=== PATIENT | female | born 1965 | race Caucasian/White ===

== ENCOUNTER 2021-10-11 10:27 | Outpatient (CLI) | payer BC | END 2021-10-11 10:28 | disposition home or self-care (01) | LOC: BICRAD 10:27 | PROVIDERS: ATTEND Family Medicine | DX: M53.3 Sacrococcygeal disorders, not elsewhere classified (principal); S32.2XXA Fracture of coccyx, initial encounter for closed fracture | CPT/HCPCS: 72220 ==

== ENCOUNTER 2024-11-03 14:57 | Emergency (ER) | payer BC ==
[2024-11-03 15:43] LABS: Bacteria/HPF None Seen HPF (None Seen); Bilirubin Negative (Negative); Blood, Urine Negative (Negative); CAUTI Indications for Culture Pelvic or flank pain; Calcium Oxalate Crystals 4+ HPF (None Seen); Clarity Turbid (Clear); Glucose, Urine (Dipstick) Normal (Negative); Ketone, Urine Trace mg/dL (Negative); Leukocyte 25 Leu/uL (Negative); Nitrite Negative (Negative); Protein, Urine (Dipstick) 20 mg/dL (Neg-Trace); RBC/HPF 0-3 HPF (0-3); Specific Gravity, Urine 1.039 (1.002-1.036); Squamous Epithelial 21-50 HPF (0-3); Urobilinogen Normal mg/dL (Less than 2); WBC/HPF 0-3 HPF (0-3); pH, Urine 5.5 (5.0-9.0)
[2024-11-03 15:45] LABS: Pregnancy Test - Urine (BHCG) Negative (Negative); Pregu Control Bar Appear? YES (CONTROL BAR); Specific Gravity 1.039 (1.002-1.036)
[2024-11-03 15:46] LABS: Pregu Control Background? CLEAR/WHITE (CLR/WHITE); Urine Culture Reflex No No
[2024-11-03 15:50] LABS: #Basophils 0.03 10x3/uL (0.0-0.2); %Basophils 0.5 % (0.0-1.0); %Eosinophils 1.5 % (0.0-10.0); %Lymphocytes 31.9 % (21.0-51.0); %Monocytes 7.3 % (0.0-10.0); %Neutrophils 58.6 % (42.0-75.0); Hematocrit 39.6 % (36.0-47.0); Mean Corpuscular HGB CONC 32.8 g/dL (32.0-36.0); Mean Corpuscular Volume 97.5 fL (78.0-98.0); Mean Platelet Volume 9.4 fL (7.4-10.4); Platelet Count 226 10x3/uL (130-400); RBC Distribution Width 12.5 % (11.5-14.5); Red Blood Cell (RBC) Count 4.06 mill/uL (4.20-5.40)
[2024-11-03 16:10] LABS: Anion Gap 13 mmol/L (10-20); BUN (Urea Nitrogen) 24 mg/dL (9.8-20.1); Calc. Creatinine Clearance 0 mL/min (70-130); Calcium 9.4 mg/dL (7.8-10.44); Carbon Dioxide 27 mmol/L (22-29); Chloride 107 mmol/L (98-107); Estimated GFR 75; Glucose 90 mg/dL (70-105); Potassium 4.3 mmol/L (3.5-5.1); Sodium 143 mmol/L (136-145)
[2024-11-03] MEDS ORDERED: Ketorolac Tromethamine 30 MG (1 mL) VIAL ONE (17:59)
== END 2024-11-03 20:32 | disposition home or self-care (01) ==
LOC: ERS 14:57
DX: D25.9 Leiomyoma of uterus, unspecified (principal)
CPT/HCPCS: 36415; 76775; 76856; 80048; 81001; 81025; 83690; 85025; 96374; J1885